=== PATIENT | male | born 1960 ===

== ENCOUNTER 2017-11-24 21:20 | Outpatient (CLI) | payer SELFPAY | END 2017-11-24 21:21 | disposition EMS.NT | LOC: EMS 21:20 | PROVIDERS: ATTEND Surgery | DX: M25.532 Pain in left wrist (principal); M25.531 Pain in right wrist; V53.5XXA Driver of pick-up truck or van injured in collision with car, pick-up truck or van in traffic accident, initial encounter; Y92.414 Local residential or business street as the place of occurrence of the external cause ==